=== PATIENT | male | born 1940 | race Caucasian/White ===

== ENCOUNTER 2021-05-04 07:31 | Emergency (ER) | payer OTHER ==
[~2021-05-04] VITALS: Ht 157.5 cm; Wt 61.7 kg
[2021-05-04 08:11] VITALS: BP 118/58
[2021-05-04] MEDS ORDERED: DEXAMETHASONE 44 M1 PO (09:07)
[2021-05-04] MEDS ORDERED: ZPAK PO (09:07)
== END 2021-05-04 09:11 | disposition home or self-care (01) ==
LOC: M.ERS 07:31
DX: U07.1 COVID-19 (principal); F17.210 Nicotine dependence, cigarettes, uncomplicated

== ENCOUNTER 2021-05-06 07:44 | Inpatient (IN) | payer OTHER ==
[~2021-05-06] VITALS: Ht 160 cm; Wt 59.2 kg
[2021-05-06] VITALS (13 sets, daily range): BP systolic 76–137; BP diastolic 49–79
[~2021-05-06 07:44] MED LIST: DEXAMETHASONE 44 M1 PO; ZPAK PO
[2021-05-06 08:25] LABS: HEMATOCRIT 28.3 % (42.0-52.0); HEMOGLOBIN 9.1 gm/dL (14.0-18.0); MCH 28.8 pg (26.0-34.0); MCHC 32.3 g/dL (28.0-37.0); MCV 89.1 fL (80.0-100.0); MPV 9.2 fl. (7.2-11.1); NUCLEATED RBCS 0 /100WBC; PCO2 29.1 mmHg (35.0-45.0); PLATELET COUNT* 362 thou/uL (150-400); RBC 3.17 mil/uL (4.50-6.00); WBC 14.8 thou/uL (4.0-11.0); pH 7.384 (7.340-7.450)
[2021-05-06 08:35] LABS: ANION GAP 13 mmol/L (7-16); BUN 55 mg/dL (7-18); CALCIUM 8.6 mg/dL (8.5-10.1); CHLORIDE 100 mmol/L (98-107); CO2 18 mmol/L (21-32); CREATININE 2.3 mg/dL (0.6-1.3); GLUCOSE 142 mg/dL (70-99); POTASSIUM 5.3 mmol/L (3.5-5.1); SODIUM 131 mmol/L (136-145)
[2021-05-06 08:39] LABS: ABSOLUTE LYMPHOCYTES 0.9 thou/uL (0.8-5.3); ABSOLUTE MONOCYTES 0.6 thou/uL (0.0-1.2); ABSOLUTE NEUTROPHILS 13.3 thou/uL (1.6-8.1); PLATELET ESTIMATE ADEQUATE
[2021-05-06 08:46] LABS: ALBUMIN 2.1 g/dL (3.4-5.0); ALKALINE PHOSPHATASE 152 U/L (46-116); NT-PRO BRAIN NAT PEPTIDE > 35000 pg/mL (<300); SGOT 412 U/L (15-37); SGPT 264 U/L (30-65); TOTAL BILIRUBIN 0.2 mg/dL (<0.1-1.0); TOTAL PROTEIN 7.8 g/dL (6.4-8.2)
--- NOTE | 2021-05-06 12:17 | NUR ---
SPOKE WITH BRAYDEN (DTR) UPDATED HER REGARDING PT CONDITION
[2021-05-06 12:39] LABS: BE -15.8 mmol/L (-2 to +3); PCO2 47.8 mmHg (35.0-45.0)
[2021-05-06 12:50] LABS: pH 7.078 (7.340-7.450)
--- NOTE | 2021-05-06 14:19 | NUR ---
PTS DAUGHTER BRAYDEN BURTON UPDATED ON PTS CONDITION AND THAT PT WILL GO TO ICU AND IS HAVING CENTRAL LINE PLACED. ADMITTING WILL UPDATE CHART WITH DAUGHTERS INFORMATION POINT OF CONTACT PTS IS ALSO ILL AND QUARANTINING.
[2021-05-06 14:42] LABS: CREATININE 2.4 mg/dL (0.6-1.3); POTASSIUM 5.7 mmol/L (3.5-5.1)
[2021-05-06 16:41] LABS: CALCIUM 8.3 mg/dL (8.5-10.1); CREATININE 2.5 mg/dL (0.6-1.3)
[2021-05-06 16:42] LABS: POTASSIUM 4.4 mmol/L (3.5-5.1)
[2021-05-06 22:14] LABS: BE -0.9 mmol/L (-2 to +3); PCO2 40.9 mmHg (35.0-45.0); pH 7.387 (7.340-7.450)
[2021-05-06 22:15] LABS: PO2 137.2 mmHg (75.0-100.0)
[2021-05-07] VITALS (75 sets, daily range): BP systolic 73–150; BP diastolic 39–81
[2021-05-07 03:46] LABS: BE -0.3 mmol/L (-2 to +3); PCO2 40.2 mmHg (35.0-45.0); pH 7.402 (7.340-7.450)
[2021-05-07 03:48] LABS: PO2 137.2 mmHg (75.0-100.0)
[2021-05-07 04:54] LABS: CHOLESTEROL 147 mg/dL (<200); HDL CHOLESTEROL 24 mg/dL (>40); LDL CHOLESTEROL 97 mg/dL (<100); TC:HDL 6.1 Ratio (Not establshd); TRIGLYCERIDE 130 mg/dL (<150); VLDL 26 mg/dL (<40)
[2021-05-07 04:59] LABS: SERUM ASSESSMENT CLEAR
[2021-05-07 05:42] LABS: HEMOGLOBIN 8.2 gm/dL (14.0-18.0); MCH 28.6 pg (26.0-34.0); MCHC 32.9 g/dL (28.0-37.0); MCV 87.1 fL (80.0-100.0); MPV 9.9 fl. (7.2-11.1); RBC 2.87 mil/uL (4.50-6.00); WBC 11.7 thou/uL (4.0-11.0)
[2021-05-07 05:59] LABS: ALBUMIN 1.9 g/dL (3.4-5.0); CREATININE 2.3 mg/dL (0.6-1.3); POTASSIUM 4.9 mmol/L (3.5-5.1); TOTAL BILIRUBIN 0.4 mg/dL (<0.1-1.0); TOTAL PROTEIN 6.7 g/dL (6.4-8.2)
--- NOTE | 2021-05-07 07:06 | NUR ---
PT INTUBATED AND SEDATED. MEDICATIONS ADMINISTERED PRESCRIBED. NO ACUTE CHANGES THIS SHIFT. SEDATION AND PRESSORS TITRATED PRN. MD CASTANEDA NOTIFIED OF CRITICAL ABG LABS. MD ALARCON NOTIFIED OF TROPONIN LABS. ASSESSMENTS COMPLETE CHARTED.
--- NOTE | 2021-05-07 19:37 | NUR ---
PT IN NO ACUTE DISTRESS AT THIS TIME. NEVAREZ INTACT AND PATENT DRAINING YELLOW URINE. ETT TUBE INTACT AND CONNECTED TO VENTILATOR. MONITORS INTACT. WILL CONTINUE TO MONITOR. NGT INTACT AND CONNECTED TO LIS WITHBROWN DRAINAGE.
[2021-05-08] VITALS (59 sets, daily range): BP systolic 82–163; BP diastolic 42–76
[2021-05-08 04:30] LABS: HEMATOCRIT 24.9 % (42.0-52.0); HEMOGLOBIN 8.3 gm/dL (14.0-18.0); MCH 29.2 pg (26.0-34.0); MCHC 33.3 g/dL (28.0-37.0); MCV 87.6 fL (80.0-100.0); RBC 2.85 mil/uL (4.50-6.00); RDW-CV 13.6 % (10.5-14.5); WBC 15.1 thou/uL (4.0-11.0)
[2021-05-08 04:52] LABS: BE -1.8 mmol/L (-2 to +3); PCO2 36.2 mmHg (35.0-45.0); PO2 115.1 mmHg (75.0-100.0)
[2021-05-08 05:22] LABS: ALBUMIN 1.8 g/dL (3.4-5.0); CALCIUM 7.9 mg/dL (8.5-10.1); CREATININE 2.4 mg/dL (0.6-1.3); MAGNESIUM 2.1 mg/dL (1.8-2.4); POTASSIUM 4.7 mmol/L (3.5-5.1); TOTAL BILIRUBIN 0.3 mg/dL (<0.1-1.0); TOTAL PROTEIN 6.5 g/dL (6.4-8.2)
--- NOTE | 2021-05-08 10:09 | CON ---
[facility] [address] [place] [address] CONSULTATION Name: KALEE MISHRA Room: [address] IN M.R.#: [id number] Admission: 05/06/21 Attend Phys: Radha Peralta Discharge: Date of : 44 Report #: [id number] THIS REPORT FOR: cc: Rusty Salinas Ahmad W. DO Blick, David R. MD [facility] ~ DATE OF CONSULTATION: 05/07/2021 CARDIOLOGY CONSULTATION HISTORY OF PRESENT ILLNESS: The patient is a 80-year-old white male, who I was asked to see in the ICU today after he was noted to have an elevated troponin. Unfortunately, the patient is currently sedated on the ventilator. There are no family members available. The patient was brought to the Emergency Room yesterday by paramedics. He recently tested positive for COVID. At home, he was weak, short of breath with coughing. In the Emergency Room, he was noted to be in respiratory distress and was intubated. He was noted to have an abnormal troponin. Cardiology consultation was requested. PAST MEDICAL HISTORY: Unknown at this time. MEDICATIONS: There is no history of previous meds. SOCIAL HISTORY: He is a smoker. REVIEW OF SYSTEMS: Cannot be obtained. PHYSICAL EXAMINATION: GENERAL: Revealed an elderly, frail-appearing male, lying in bed, on the ventilator. VITAL SIGNS: He is on Levophed. His blood pressure is 100 systolic, pulse is 70, he is afebrile. HEENT: He was anicteric. Conjunctivae pink. Mucous membranes appear dry. NECK: Neck veins do not appear distended. CHEST: Coarse breath sounds bilaterally. HEART: Regular rate and rhythm, no significant murmur. ABDOMEN: Soft. EXTREMITIES: Had no pitting edema. LABORATORY DATA: His ECG on admission showed a sinus rhythm, left ventricular hypertrophy, repolarization changes. His workup, he had a portable chest x-ray that showed diffuse bilateral infiltrates, possible COVID-19 pneumonia. His lab work, BUN 61, creatinine 2.3, SGOT 1538, SGPT 1020, alkaline phosphatase is 140. His high sensitivity troponin initially was 6271. It is currently 3900. BNP 35,000. Hemoglobin 8.2. COVID antigen [place] [address] CONSULTATION Name: DANICAKALEE Ruddy Room: [address]#: [id number] Admission: 05/06/21 Attend Phys: Radha Peralta Discharge: Date of : 44 Report #: [id number] IMPRESSION AND RECOMMENDATIONS: 1. COVID-19 pneumonia. The patient currently ventilated. 2. Non-ST elevation myocardial infarction. I would not recommend cardiac catheterization at this time. I will continue Lovenox and aspirin. I would recommend an echocardiogram. 3. Chronic kidney disease. 4. Elevated liver function studies. 5. Anemia. <ELECTRONICALLY SIGNED> By: Walter Raya MD, FACC 05/08/21 1009 0906 [id number] Jessica Raya MD, FACC /nt
--- NOTE | 2021-05-08 12:22 | EKG ---
[place] [address] ELECTROCARDIOGRAM REPORT Name: DANICA,KALEE Ruddy Room: [address] ADM IN M.R.#: [id number] Admission: 05/06/21 Attend Phys: Navdeep Ingram Discharge: Date of : 44 Date of Service: 05/06/21 0816 Report #: [id number] THIS REPORT FOR: //name// [facility] ED Test Date: 2021-05-06 Test Time: 08:16:32 Pat Name: KALEE MISHRA Department: Room: [address] Gender: M Teacher Adult Education: GWEN : 1940 Requested By: Brock Voss Order Number: [id number] MD: Robert Beckett Measurements Intervals [place] Rate: 101 P: 82 WY: 128 QRS: -41 QRSD: 124 T: 88 QT: 376 QTc: 488 Interpretive Statements Sinus tachycardia Ventricular premature complex LAE, consider biatrial enlargement Nonspecific IVCD with LAD Left ventricular hypertrophy Anterior infarct, old possible Nonspecific T abnormalities, lateral leads No previous ECG available for comparison Electronically Signed On 05-08-2021 12:21:41 SODA DRY HOUSE OPERATOR by Robert Beckett [email or web address] <ELECTRONICALLY SIGNED> By: Robert Beckett MD, FACC 05/08/21 1221 5 5 Robert Beckett MD, FACC /EPI
--- NOTE | 2021-05-08 12:24 | EKG ---
[place] [address] ELECTROCARDIOGRAM REPORT Name: DANICA,KALEE Ruddy Room: [address] IN .R.#: [id number] Admission: 05/06/21 Attend Phys: Navdeep Ingram Discharge: Date of : 44 Date of Service: 05/07/21 0552 Report #: [id number] THIS REPORT FOR: //name// [facility] Test Date: 2021-05-07 Test Time: 05:52:42 Pat Name: KALEE MISHRA Department: Room: [address] Gender: M Location Director: AT : 1940 Requested By: Navdeep Ingram Order Number: [id number] Kiki MD: Robert Beckett Measurements Intervals [place] Rate: 69 P: 85 PA: 119 QRS: 97 QRSD: 119 T: 141 QT: 466 QTc: 500 Interpretive Statements Sinus rhythm Borderline short PA interval Left atrial enlargement Anterior infarct, old Abnormal T, consider ischemia, lateral leads Compared to ECG 05/06/2021 08:16:32 Possible ischemia now present Sinus tachycardia no longer present Ventricular premature complex(es) no longer present Left ventricular hypertrophy persists Myocardial infarct finding still present T-wave abnormality still present Electronically Signed On 05-08-2021 12:23:49 TEAM MANAGER by Robert Beckett [email or web address] <ELECTRONICALLY SIGNED> By: Robert Beckett MD, [facility] 05/08/21 1223 0552 0552 Robert Beckett MD, [facility] /EPI
--- NOTE | 2021-05-08 12:30 | EKG ---
[place] [address] ELECTROCARDIOGRAM REPORT Name: DANICA,KALEE Ruddy Room: [address] IN .R.#: [id number] Admission: 05/06/21 Attend Phys: Navdeep Ingram Discharge: Date of : 44 Date of Service: 05/07/21 1421 Report #: [id number] THIS REPORT FOR: //name// [facility] Test Date: 2021-05-07 Test Time: 14:21:06 Pat Name: KALEE MISHRA Department: Room: [address] Gender: M Drywall Hanger: : 1940 Requested By: Navdeep Ingram Order Number: [id number] Reading MD: Robert Beckett Measurements Intervals [place] Rate: 82 P: 98 [place]: 120 QRS: 135 QRSD: 120 T: QT: 405 QTc: 473 Interpretive Statements Sinus rhythm Biatrial enlargement Probable lateral infarct, age indeterminate Anterior infarct, old Nonspecific T abnormalities, lateral leads Compared to ECG 05/06/2021 08:16:32 Sinus tachycardia no longer present Ventricular premature complex(es) no longer present Left ventricular hypertrophy still possible Myocardial infarct finding still present T-wave abnormality still present Electronically Signed On 05-08-2021 12:30:13 PORTABLE FEED MILL OPERATOR by Robert Beckett [email or web address] <ELECTRONICALLY SIGNED> By: Robert Beckett MD, [facility] 05/08/21 1230 142 1421 Robert Beckett MD, [facility] /EPI
--- NOTE | 2021-05-08 12:55 | NUR ---
Pt is admitted to the hospital for Covid 19/Respiratory Failure on 05/06/21. Called daughter - Esther to complete assessment. Pt lives with , daughter, and grandaughter in a mobile home with 5 steps to enter. Pt was independent with ambulation and ADL's. Pt's PCP is listed as Dr. Rusty Salinas in [place], [place] - however daughter reports her father refuses to go to a doctor and can't remember the last time he went to the doctor and it was a fight to get him to agree to come to the hospital. Pt is not on any regular medications. Discussed not seeing a PCP on a regular basis could be a barrier to setting up home health if needed. Daughter is reporting pt will not want to go to a SNF either. Daughter is reporting mother has Covid as well. CM to follow for discharge planning.
--- NOTE | 2021-05-08 14:02 | 2DMMODE ---
[place] [address] 2 D/M-MODE ECHOCARDIOGRAM Name: KALEE MISHRA Room: [address] IN ..#: [id number] Admission: 05/06/21 Attend Phys: Navdeep Ingram Discharge: Date of : 44 Date of Service: 05/08/21 1401 Report #: [id number] THIS REPORT FOR: cc: Rusty Salinas Ahmad W. DO Holkins,Robert Haddad MD [facility] ~ APPROVED REPORT Study performed: 05/08/2021 11:53:43 EXAM: Comprehensive 2D, Doppler, and color-flow Echocardiogram Patient Location: In-Patient Room #: 001 Status: routine BSA: 1.57 HR: 80 bpm BP: 126/49 mmHg Rhythm: NSR Other Information Study Quality: Good Indications Acute DC Elevated Troponin 2D Dimensions IVSd: 9.36 (7-11mm) LVOT Diam: 20.66 (18-24mm) LVDd: 57.91 mm PWd: 8.19 (7-11mm) Ascending Ao: 32.52 (22-36mm) LVDs: 51.38 (25-40mm) Aortic Root: 34.54 mm Volumes Left Atrial Volume (Systole) LA ESV Index: 59.60 mL/m2 Aortic Valve AoV Peak Ayaz.: 1.06 m/s AO Peak Gr.: 4.49 mmHg LVOT Max P.52 mmHg AO Mean Gr.: 1.68 mmHg LVOT Mean P.05 mmHg LVOT Max V: 0.79 m/s AO V2 VTI: 13.97 cm LVOT Mean V: 0.47 m/s GALILEA (VTI): 3.09 cm2 LVOT V1 VTI: 12.87 [place] [address] 2 D/M-MODE ECHOCARDIOGRAM Name: KALEE MISHRA Room: [address] IN .R.#: [id number] Admission: 05/06/21 Attend Phys: Navdeep Ingram Discharge: Date of : 44 Date of Service: 05/08/21 1401 Report #: [id number] Mitral Valve E/A Ratio: 1.86 MV Decel. Time: 123.49 ms MV E Max Ayaz.: 1.16 m/s MV PHT: 35.81 ms MVA (PHT): 6.14 cm2 TDI E/Lateral E': 16.57 E/Medial E': 23.20 Medial E' Ayaz.: 0.05 m/s Lateral E' Ayaz.: 0.07 m/s Pulmonary Valve PV Peak Ayaz.: 0.68 m/s PV Peak Gr.: 1.87 mmHg Tricuspid Valve RAP Estimate: 10.00 mmHg TR Peak Gr.: 27.75 mmHg RVSP: 37.00 mmHg PA Pressure: 37.00 mmHg Left Ventricle Left ventricle is moderately dilated. There is severe diffuse hypokinesis of LV wall motion There is normal left ventricular wall thickness. Left ventricular systolic function is severely decreased. LVEF is 25%. Grade IV - fixed restrictive diastolic dysfunction. Right Ventricle Right ventricle is mildly dilated. The right ventricular systolic function is normal. Atria Left atrium is moderately dilated. Right atrium is dilated. Aortic Valve Mild aortic valve sclerosis. Trace aortic regurgitation. There is no aortic valvular stenosis. Mitral Valve There is mitral annular calcification. Moderate mitral regurgitation. No evidence of mitral valve stenosis. Tricuspid Valve The tricuspid valve is normal in structure. Trace tricuspid regurgitation. [place] [address] 2 D/M-MODE ECHOCARDIOGRAM Name: DANICAKALEE Ruddy Room: [address] IN [facility]#: [id number] Admission: 05/06/21 Attend Phys: Navdeep Ingram Discharge: Date of : 44 Date of Service: 05/08/21 1401 Report #: [id number] Pulmonic Valve The pulmonary valve is normal in structure. Mild pulmonic regurgitation. Great Vessels The aortic root is normal in size. IVC is dilated. Pericardium There is no pericardial effusion. Left pleural effusion. <Conclusion> Left ventricle is moderately dilated. Left ventricular systolic function is severely decreased. LVEF is 25%. Grade IV - fixed restrictive diastolic dysfunction. Right ventricle is mildly dilated. Left atrium is moderately dilated. Right atrium is dilated. Mild aortic valve sclerosis. Trace aortic regurgitation. There is no aortic valvular stenosis. There is mitral annular calcification. Moderate mitral regurgitation. No evidence of mitral valve stenosis. The tricuspid valve is normal in structure. Trace tricuspid regurgitation. Mild pulmonary hypertension. IVC is dilated. There is no pericardial effusion. There is severe diffuse hypokinesis of LV wall motion <ELECTRONICALLY SIGNED> By: Robert Beckett MD, FACC 05/08/21 140 00 140 Robert Beckett MD, FACC /INF
--- NOTE | 2021-05-08 15:49 | NUR ---
WOUND NURSE: LOW BRET SCORE TRIGGERED WOUND CARE CONSULT. PATIENT IS ON SPECIALTY MATTRESS. WILL VERIFY NUTRITION CONSULT. Y
--- NOTE | 2021-05-08 18:54 | NUR ---
PT IN NO ACUTE DISTRESS AT THIS TIME, PT REMAINS INTUBATED AND ON VENTILATOR SEE CHARTING FOR SETTINGS. NEVAREZ INTACT AND PATENT DRAINING YELLOW URINE. MONITORS. MONITORS INTACT. SEDATION WAS DECREASED INSTRUCTED, PT HAD INCREASED HR WITH SEDATION OFF AND WAS UNABLE TO PERFORM WEANING TRIAL. PRECEDEX STARTED ORDERED AND WILL ATTEMPT WEANING TRIAL TOMORROW.
[2021-05-09] VITALS (56 sets, daily range): BP systolic 91–122; BP diastolic 43–75
[2021-05-09 05:29] LABS: ABSOLUTE LYMPHOCYTES 0.1 thou/uL (0.8-5.3); ABSOLUTE MONOCYTES 0.1 thou/uL (0.0-1.2); BASOPHILS 0.1 %; HEMATOCRIT 24.5 % (42.0-52.0); HEMOGLOBIN 8.2 gm/dL (14.0-18.0); LYMPHOCYTES 1.6 %; MCH 29.4 pg (26.0-34.0); MCHC 33.6 g/dL (28.0-37.0); MCV 87.3 fL (80.0-100.0); MONOCYTES 1.8 %; MPV 9.8 fl. (7.2-11.1); NUCLEATED RBCS 1 /100WBC; PLATELET COUNT* 211 thou/uL (150-400); POLYS 96.5 %; RBC 2.81 mil/uL (4.50-6.00); WBC 8.3 thou/uL (4.0-11.0)
[2021-05-09 05:57] LABS: ALBUMIN 1.8 g/dL (3.4-5.0); CALCIUM 8.1 mg/dL (8.5-10.1); CREATININE 2.2 mg/dL (0.6-1.3); MAGNESIUM 2.3 mg/dL (1.8-2.4); PHOSPHORUS* 3.9 mg/dL (2.5-4.9); POTASSIUM 4.2 mmol/L (3.5-5.1); TOTAL BILIRUBIN 0.4 mg/dL (<0.1-1.0); TOTAL PROTEIN 6.2 g/dL (6.4-8.2)
--- NOTE | 2021-05-09 09:47 | EKG ---
[place] [address] ELECTROCARDIOGRAM REPORT Name: DANICA,KALEE Ruddy Room: [address] IN .R.#: [id number] Admission: 05/06/21 Attend Phys: Navdeep Ingram Discharge: Date of : 44 Date of Service: 05/08/21 1049 Report #: [id number] THIS REPORT FOR: //name// [facility] Test Date: 2021-05-08 Test Time: 10:49:32 Pat Name: KALEE MISHRA Department: Room: [facility] Gender: M Commissioning Manager: : 1940 Requested By: Walter Raya Order Number: [id number] Reading MD: Robert Beckett Measurements Intervals [place] Rate: 76 P: 83 [place]: 123 QRS: 269 QRSD: 126 T: 93 QT: 404 QTc: 455 Interpretive Statements Sinus rhythm Ventricular premature complex Probable left atrial enlargement Nonspecific IVCD with LAD Inferior infarct, old Probable anterior infarct, age indeterminate Compared to ECG 05/07/2021 14:21:06 Ventricular premature complex(es) now present Intraventricular conduction delay now present Q waves now present Myocardial infarct finding still present Electronically Signed On 05-09-2021 9:47:27 RESIDENCE LIFE DIRECTOR by Robert Beckett [email or web address] <ELECTRONICALLY SIGNED> By: Robert Beckett MD, [facility] 05/09/21 0947 1049 1049 Robert Beckett MD, [facility] /EPI
--- NOTE | 2021-05-09 15:20 | NUR ---
Family has elected to switch patient to comfort care today. They came and said their goodbye's and the plan is to extubate pt later today. Pt would like to donate his body to science and family left a card for the nurses to call when he passes away.
--- NOTE | 2021-05-09 15:39 | EKG ---
[place] [address] ELECTROCARDIOGRAM REPORT Name: DANICAKALEE Fox Room: [address] ADM IN M.R.#: [id number] Admission: 05/06/21 Attend Phys: Navdeep Ingram Discharge: Date of : 44 Date of Service: 05/09/2129 Report #: [id number] THIS REPORT FOR: //name// [facility] Test Date: 2021-05-09 Test Time: 08:29:51 Pat Name: KALEE MISHRA Department: Room: [address] Gender: M Dispatcher Maintenance Service: JAMA : 1940 Requested By: Navdeep Ingram Order Number: [id number] Reading MD: Robert Beckett Measurements Intervals [place] Rate: 83 P: 86 [place]: 115 QRS: 86 QRSD: 125 T: 256 QT: 370 QTc: 435 Interpretive Statements Sinus rhythm Paired ventricular premature complexes Borderline short [place] interval Biatrial enlargement LVH with secondary repolarization abnormality Anterior infarct, old possible Lead(s) I were not used for morphology analysis Compared to ECG 05/08/2021 10:49:32 Left ventricular hypertrophy now present Possible myocardial infarct finding still present Electronically Signed On 05-09-2021 15:39:38 HORTICULTURALIST by Robert Beckett [email or web address] <ELECTRONICALLY SIGNED> By: Robert Beckett MD, [facility] 05/09/21 1539 8 8 Robert Beckett MD, [facility] /EPI
--- NOTE | 2021-05-09 19:25 | NUR ---
0730: Assumed care of pt, received report from DANIELA Robertson. During report, the pt's monitor showing a bigeminy rhythm. This RN obtained an EKG, notified Dr. Henderson and Dr. London of the heart rhythm change, no further orders at this time. 1030: Dr. Henderson at the pt's bedside. RN and Dr. Henderson discussed the pt's labs and EKG. Labs and VS relatively stable considering pt's condition. No new orders at this time. Dr. London and his students also at the pt's bedside. With pt's prognosis and end stage disease processes, Dr. London will reach out to the pt's family to discuss further options and quality of life for pt. Will await any further orders if family decides to change care to comfort care measures. 1100: Dr. Chappell at the pt's bedside. Dr. Chappell does not wish to wean pt today due to pt's restless state and agitation. Pt unable to tolerate trial wean due to needing the sedation gtts to maintain stable respiratory and heart rates. Dr. Chappell wants the Versed gtt D/C'd and to restart the Fentanyl gtt for sedation. Precedex still running at 1.4mcg/kg/hr. 1200: Dr. London called to inform this RN that the pt's daughter, Samantha Paz, has decided to move forward with pt's wishes and stop life saving interventions once she arrives later today. Per pt's daughter, Samantha, pt made his wishes be known before he came to the hospital that he did not wish to be on a ventilator longer than three days if there is no improvement. Per Dr. London, once the daughter arrives, nursing staff is to let the family say their goodbyes, then we are to extubate pt and place him on NC and comfort care measures. Dr. London will put in the order set for comfort care. 1451: pt's family arrived to the unit in the presence of Iraida Choe. Family and nursing staff discussed pt's wishes after and what arrangements need to be made. Samantha does not wish to stay once nursing staff places pt on comfort care measures. Pt wishes to have his body donated to [employer], . The card is in the pt's chart, along with instructions on who and when to contact per body donation. 1538: pt's status changed to comfort care measures, no code status, sedation IVP PRN, and pt extubated at 1540, placed on 5L NC, SpO2 maintaining mid to high 90s, BP also maintaining with a MAP greater than 60. Will continue to reposition and turn pt. Will continue to monitor and make changes as necessary. RN attempted to call the palliative care RN number and it was an incorrect number. This RN did talk with the dry mill operator to alert him to the spiritual/palliative consults.
[2021-05-10] VITALS (10 sets, daily range): BP systolic 86–142; BP diastolic 52–84
--- NOTE | 2021-05-10 16:16 | NUR ---
CM FOLLOWUP PER PT AND FAMILY WISHES, PT MOVED TO COMFORT CARE. CM PLACED CALL TO PT'S (MEMO MISHRA - [phone]) TO DISCUSS HOSPICE. CM UNABLE TO MAKE CONTACT AND LEFT A VOICEMAIL. CM TO FOLLOWUP.
--- NOTE | 2021-05-10 19:43 | NUR ---
PT ARRIVED ON THE UNIT AT 1315. HE IS COMFORT CARE, BUT TELE MONITOR WAS APPLIED. PT WAS MEDICATED FOR AGGITATION AND DISCOMFORT THROUGH THE SHIFT WITH MORPHINE AND ATIVAN.
[2021-05-11 04:01] VITALS: BP 138/75
--- NOTE | 2021-05-11 07:05 | NUR ---
PATIENT REMAINS ON COMFORT CARE. ATIVAN AND MORPHINE WAS GIVEN ABOUT EVERY 4 HOURS. NEVAREZ REMAINS TO DEPENDENT DRAIN. WILL CONTINUE TO MONITOR.
[2021-05-11 09:30] VITALS: BP 122/77
--- NOTE | 2021-05-11 15:02 | NUR ---
CM FOLLOWUP PT ON COMFORT CARE. HOSPICE AT HOME NOT AN OPTION PT'S FAMILY HAS COVID AND UNABLE TO CARE FOR PT. HOSPICE HOUSE NOT AN OPTION THREE LOCATIONS CONTACTED ( HOSPICE HOUSE, [facility] HOUSE, AND [facility]OSP[facility] HOUSE) REQUIRE PT TO BE 10 DAYS POST COVID DX. IF NEEDED, HOSPICE HOUSE TO BE EXPLORED WHEN PT MEETS ACCEPTANCE CRITERIA.
[2021-05-11 16:00] VITALS: BP 117/59
[2021-05-12 00:05] VITALS: BP 154/91
[2021-05-12 04:00] VITALS: BP 120/80
[2021-05-12 12:03] VITALS: BP 127/66
[2021-05-12 16:18] VITALS: BP 111/65
[2021-05-12 20:45] VITALS: BP 104/64
--- NOTE | 2021-05-13 07:06 | NUR ---
PATIENT HAS RESTED THROUGHOUT THE NIGHT. PATIENT NON RESPONSIVE. VSS ON 2L. SPOKE WITH OVER THE PHONE ABOUT PATIENT STATUS. PATIENT REMAINS ON COMFORT CARE. NURSING TO CONTINUE MONITORING.
[2021-05-13 08:00] VITALS: BP 109/72
--- NOTE | 2021-05-13 14:10 | NUR ---
CM FOLLOWUP PT ACCEPTED TO [facility] ([phone]) WITH ADMISSION TO OCCUR 05/15/21. FAMILY SELECTED HOSPICE LOCATION AND IN AGREEMENT WITH DISCHRGE ON 05/15/21. CM TO FOLLOWUP TO ARRANGE TRANSPORT.
--- NOTE | 2021-05-13 16:32 | NUR ---
The patient is alert to self. Oral care given. Turned and respositioned often. Family updated on care today.
[2021-05-13 20:00] VITALS: BP 103/54
[2021-05-14] VITALS: BP 80/33
--- NOTE | 2021-05-14 02:13 | NUR ---
PATIENT ON COMFORT CARE, AT 0138. DAUGHTER, BRAYDEN BURTON WAS NOTIFIED AT 0156. MTN NOTIFIED AT 0209, DR. DOBSON (CLINICAL RESEARCH NURSE HOSPITALIST) NOTIFIED AT 0215, CERTIFICATE TO BE SIGNED BY DR. ALVARADO. ALL CONSULTING PHYSCIANS NOTIFIED AT 0203. CASH REGISTER REPAIRER NOTIFIED AT 0148
== END 2021-05-14 01:38 | DRG 871 ==
LOC: M.ERS 07:44 → M.ICU 09:58 → M.TBA-ER 09:58 → M.ICU 17:30 → M.ORTHSURG 05-10 13:03
PROVIDERS: Family Medicine; Internal Medicine; Internal Medicine Cardiovascular Disease; Internal Medicine Critical Care Medicine; Pediatrics; ADMIT Internal Medicine; ATTEND Internal Medicine
PROC: 0BH17EZ Insertion of Endotracheal Airway into Trachea, Via Natural or Artificial Opening (ICD-10-PCS; principal; 2021-05-06)
PROC: 5A1945Z Respiratory Ventilation, 24-96 Consecutive Hours (ICD-10-PCS; principal; 2021-05-06)
PROC: XW033H5 Introduction of Tocilizumab into Peripheral Vein, Percutaneous Approach, New Technology Group 5 (ICD-10-PCS; principal; 2021-05-06)
PROC: XW13325 Transfusion of Convalescent Plasma (Nonautologous) into Peripheral Vein, Percutaneous Approach, New Technology Group 5 (ICD-10-PCS; 2021-05-07)
DX: A41.89 Other specified sepsis (principal); U07.1 COVID-19; I21.4 Non-ST elevation (NSTEMI) myocardial infarction; E43 Unspecified severe protein-calorie malnutrition; N17.0 Acute kidney failure with tubular necrosis; J12.82 Pneumonia due to coronavirus disease 2019; J80 Acute respiratory distress syndrome; E87.1 Hypo-osmolality and hyponatremia; N18.9 Chronic kidney disease, unspecified; D64.9 Anemia, unspecified; R73.9 Hyperglycemia, unspecified; E87.5 Hyperkalemia; Z51.5 Encounter for palliative care